=== PATIENT | male | born 2000 | race Caucasian/White ===

== ENCOUNTER 2025-02-17 15:27 | Emergency (ER) | payer SELFPAY ==
--- OUTSIDE RECORDS SUMMARY | 2022-02-15 08:00 | XMS_ITS | Continuity of Care Document ---
Author Organization [facility] Address [address] [place] [address] Phone Care Team Providers Care Senior Data Integration Developer Name Role Phone Josi Baron DMD Unavailable Unavailable Procedures Procedure Date Resin Two Surfaces Anterior Resin 2 Surf Posterior Resin 2 Surf Posterior Resin Three Surfaces Anterior Comprehensive Oral Evaluation High Risk For Caries Panoramic Film Advance Directives Directive Yes / No Effective Date File Name No Information Encounters Encounter Description Practice Location Reason(s) For Visit Diagnoses Date Provider Providers Copied on Encounter [facility], [address] [place] [address], [id number], tel:[phone] [facility] Dental caries, unspecified Tod Prater. [address] [place], [address], . tel: [phone] [facility], [address] [place] [address], [id number], [place] tel:[phone] [facility] Dental caries, unspecified Noemi Florence. [address] [place], [address], . tel: [phone] [facility], [address] [place] [address], [id number], [place] tel:[phone] [facility] Dental caries, unspecified Tod Prater. [address] [place], [address], . tel: [phone] [facility], [address] [place] [address], [id number], [place] tel:[phone] [facility] Center Encounter for dental exam and cleaning w abnormal findings Tod Prater. [address] [place] [address], [id number], [place]. tel: [phone] Family History Family Member Type Diagnosis Age At Onset No Information Payers Payer name Insurance type Covered republican ID Authoriza tipanchito(s) [facility] [id number] Social History Type Description Quantity Date Captured Comments Sex Male Smoking Status No Information Chief Complaint And Reason For Visit No Information Reason For Referral Reason For Referral No Information History Of Present Illness Encounter Date Complaint History Of Prese nt Illness No Information Functional Status Date Functional Assessmen t No Information Instructions Date Instruction Additional Infor mation No Information Assessments Type Assessment Date No Information Patient Care Teams Name Effective Dates (start - stop) Status Members No Information
--- OUTSIDE RECORDS SUMMARY | 2022-02-15 08:00 | XMS_ITS | Continuity of Care Document ---
Author Organization [facility] Address [address] [place] [address] Phone Care Team Providers Care Vice President Of Manufacturing Name Role Phone Josi Baron DMD Unavailable Unavailable Procedures Procedure Date Resin Two Surfaces Anterior Resin 2 Surf Posterior Resin 2 Surf Posterior Resin Three Surfaces Anterior Comprehensive Oral Evaluation High Risk For Caries Panoramic Film Advance Directives Directive Yes / No Effective Date File Name No Information Encounters Encounter Description Practice Location Reason(s) For Visit Diagnoses Date Provider Providers Copied on Encounter [facility], [address] [place] [address], [id number], tel:[phone] [facility] Dental caries, unspecified Tod Prater. [address] [place], [address], . tel: [phone] [facility], [address] [place] [address], [id number], [place] tel:[phone] [facility] Dental caries, unspecified Noemi Florence. [address] [place], [address], . tel: [phone] [facility], [address] [place] [address], [id number], [place] tel:[phone] [facility] Dental caries, unspecified Tod Prater. [address] [place], [address], . tel: [phone] [facility], [address] [place] [address], [id number], [place] tel:[phone] [facility] ed Health Center Encounter for dental exam and cleaning w abnormal findings Tod Prater. [address] [place] [address], [id number], [place]. tel: [phone] Family History Family Member Type Diagnosis Age At Onset No Information Payers Payer name Insurance type Covered democrat ID Authoriza tipanchito(s) [facility] [id number] Social History Type Description Quantity Date Captured [...]
[2025-02-17 15:37] VITALS: BP 116/78; PULSE 83; RESP 16; TEMP 36.8; O2SAT 99
--- NOTE | 2025-02-18 11:25 | ED.SKABFB ---
HPI - Skin/Abscess/Foreign Bdy General Chief complaint: Extremity Injury, Upper Stated complaint: RT Arm problem Time Seen by Provider: 02/17/25 15:50 Source: patient Mode of arrival: ambulatory Limitations: no limitations History of Present Illness HPI narrative: 24-year-old male presents with erythema, swelling to right upper arm. Afebrile. progressive worsening of erythema and swelling over the past 2 days. Patient reports that he did a testosterone injection to right upper arm approximately 3 weeks ago. Used a clean needle but states did not clean with alcohol swab prior to injection. Normal range of motion to right upper extremity. All systems reviewed and negative except as noted above. Related Data Allergies Allergy/AdvReac Type Severity Reaction Status Date / Time No Known Allergies Allergy Verified 02/17/25 15:42 PMFSH Comments At time of signature, agree with nursing past medical, surgical, social and family history. There is no relevant family history pertinent to the presenting complaint. Exam Narrative: GENERAL: This is a well-nourished, well-developed patient, in no apparent distress. HEAD: normocephalic, atraumatic. EYES: PERRL. Sclera clear/white. Vision is grossly intact. EARS: External ears normal NOSE: External nose normal NECK: Neck supple, non-tender without lymphadenopathy, masses or thyromegaly. CARDIOVASCULAR: Regular rate and rhythm without murmurs, gallops, or rubs. RESPIRATORY: Clear to auscultation. Breath sounds equal bilaterally. No wheezes, rales, or rhonchi. SKIN: warm, Dry, intact with no suspicious lesions or rash, good texture and turgor. NEURO: awake, alert, and oriented to person, place and time. There were no obvious focal neurologic abnormalities. EXTREMITIES: Erythema, swelling to lateral aspect of right upper extremity, warm on palpation. No fluctuance concerning for abscess. erythema [id number] Course Course Level of Care: Express Care Visit Vital Signs Vital signs: Vital Signs Temperature 36.8 C 02/17/25 15:37 Pulse Rate 83 02/17/25 15:37 Respiratory Rate 16 02/17/25 15:37 Blood Pressure 116/78 02/17/25 15:37 Pulse Oximetry 99 02/17/25 15:37 Oxygen Delivery Room Air 02/17/25 15:37 Temperature 36.8 C 02/17/25 15:37 Pulse Rate 83 02/17/25 15:37 Respiratory Rate 16 02/17/25 15:37 Blood Pressure 116/78 02/17/25 15:37 Pulse Oximetry 99 02/17/25 15:37 Oxygen Delivery Room Air 02/17/25 15:37 Reviewed MDM - Skin/Abscess/Foreign Bdy MDM Narrative Medical decision making narrative: will treat cellulitis to right upper extremity with cephalexin. Due to possibility of allergic reaction Injection site reaction will give Medrol Dosepak. Patient agrees with plan of care. Range of motion and distal neurovascularly intact at time of discharge. Differential Diagnosis Differential diagnosis: Likely abscess of skin or subcutaneous tissue, urticaria, allergic reaction to drug and cellulitis Discharge Plan Discharge Clinical Impression: Cellulitis of arm, right, Injection site reaction Patient Disposition: Home Condition: Stable Instructions: Antibiotic Form, Cellulitis (ED) Additional Instructions: Take medications as prescribed. Take ibuprofen every 6-8 hours as needed for pain. Elevate when at rest. Follow-up with your primary care physician if not improving. For any worsening of symptoms go to the ER. Patient Language: Luxembourger Prescriptions: New cephalexin 500 mg capsule 500 mg PO QID 7 Days Qty: 28 0RF methylprednisolone [Medrol (Jared)] 4 mg tablets,dose pack See Rx Instructions PO .COMPLEX Qty: 21 0RF Rx Instructions: orally per package directions Follow-up/Referrals: PHYSICIAN,PHARMACIST INTERN [Primary Care Provider, Internal Medicine] Time of Disposition: 16:09
== END 2025-02-17 16:13 | disposition home or self-care (01) ==
PROVIDERS: Emergency Provider Nurse Practitioner Family
DX: T80.29XA Infection following other infusion, transfusion and therapeutic injection, initial encounter (principal); L03.113 Cellulitis of right upper limb
CPT/HCPCS: 99213; G0463